=== PATIENT | female | born 1945 | race Caucasian/White ===

== ENCOUNTER → 2021-08-04 08:27 | Outpatient (CLI) | payer MEDICARE, OTHER, SELFPAY ==
--- NOTE | 2021-08-04 08:34 | DI.US.S_ITS ---
LIMITED ULTRASOUND OF RIGHT BREAST: 08/04/2021 CLINICAL: Patient returns today to evaluate an asymmetry in the right breast. Comparison is made to exams dated: 08/04/2021 mammogram - [facility], 03/09/2021 ultrasound, 07/24/2020 ultrasound, 07/06/2020 ultrasound, 07/06/2020 mammogram, and 06/12/2020 mammogram - [facility]. Color flow and real-time ultrasound of the right breast 10-12 o'clock region were performed. Aguila scale images of the real-time examination were reviewed. There is a 1.8 cm taller than wide irregular mass in the right breast at 11 o'clock anterior depth 3 cm from the nipple. This irregular mass is hypoechoic with posterior acoustic shadowing. This abnormality is increased in size and correlates with mammography findings. Color flow imaging demonstrates that there is increased vascularity. There also is a 1 cm taller than wide irregular mass in the right breast at 10 o'clock posterior depth 10 cm from the nipple. This irregular mass is hypoechoic with posterior acoustic shadowing. This correlates with mammography findings. Color flow imaging demonstrates that there is increased vascularity. IMPRESSION: SUSPICIOUS OF MALIGNANCY The 1.8 cm taller than wide irregular mass in the right breast at 11 o'clock anterior depth is suspicious of malignancy. An ultrasound guided biopsy is recommended. The 1 cm taller than wide irregular mass in the right breast at 10 o'clock posterior depth is suspicious of malignancy. An ultrasound guided biopsy is recommended. This exam was interpreted at Station ID: [id number]. Electronically Signed By: Alpesh Jorge M.D. jr/:08/04/2021 11:03:09 letter sent: Biopsy Required Ultrasound BI-RADS: 4 Suspicious for malignancy
--- NOTE | 2021-08-04 08:34 | DI.MG.S_ITS ---
BILATERAL DIGITAL DIAGNOSTIC MAMMOGRAM 3D/2D: 08/04/2021 CLINICAL: Right breast mass. Comparison is made to exams dated: 07/06/2020 mammogram, 06/12/2020 mammogram, and 04/01/2019 mammogram - [facility]. There are scattered fibroglandular elements in both breasts. There is a 1.8 cm high density mass with a spiculated margin in the right breast at 11 o'clock anterior depth 3 cm from the nipple. This is increased in size. There also is a new 1 cm irregular mass with an indistinct margin in the right breast at 10 o'clock posterior depth 10 cm from the nipple. No other significant masses, calcifications, or other findings are seen in either breast. IMPRESSION: INCOMPLETE: NEEDS ADDITIONAL IMAGING EVALUATION Enlarged from prior, there is a 1.8 cm high density mass in the right breast at 11 o'clock anterior depth. An ultrasound is recommended. New 1 cm irregular mass in the right breast at 10 o'clock posterior depth. An ultrasound is recommended. This exam was interpreted at Station ID: [id number]. NOTE: For mammograms, a report in lay terms will be sent to the patient. Approximately 15% of breast malignancies will not be visualized mammographically. In the management of a palpable breast mass, a negative mammogram must not discourage biopsy of a clinically suspicious lesion. Electronically Signed By: Alpesh Jorge M.D. jr/:08/04/2021 11:01:14 ACR BI-RADS Category 0: Incomplete [id number]
== END ==
PROVIDERS: PCP Internal Medicine; Referring Provider Internal Medicine; Visit Provider Internal Medicine
DX: R92.8 Other abnormal and inconclusive findings on diagnostic imaging of breast (principal); N63.11 Unspecified lump in the right breast, upper outer quadrant
CPT/HCPCS: 76642; 77066; G0279